=== PATIENT | female | born 1950 | race Caucasian/White ===

== ENCOUNTER → 2017-08-20 | Outpatient (CLI) | payer BC ==
--- NOTE | 2017-08-20 17:13 | RAD ---
EXAM: Chest, 2 views. HISTORY: Cough. COMPARISON: None. FINDINGS: Frontal and lateral views of the chest are obtained. There is no infiltrate, effusion or pneumothorax. The heart is normal in size. There is mild hyperinflation likely due to inspiratory effort. IMPRESSION: No acute pulmonary finding. Electronically signed by: Sasha Ramirez MD (08/20/2017 5:10 PM) [facility]
== END | disposition home or self-care (01) ==
LOC: PMG 14:38
PROVIDERS: ATTEND Physician Assistant Medical
DX: R05 Cough (principal); Z85.3 Personal history of malignant neoplasm of breast
CPT/HCPCS: 71046

== ENCOUNTER → 2017-08-24 | Outpatient (CLI) | payer BC ==
--- NOTE | 2017-08-24 09:30 | RAD ---
EXAM: MAMMO DEE DEE DIAG BILAT, BREAST LEFT. HISTORY: Left axillary pain radiating to the nipple. Discussion with the patient also gives history of stocking heavy items. COMPARISON: 02/25/2016, 10/26/2014, 09/15/2013. FINDINGS: 2-D and 3-D tomosynthesis mammograms were obtained of both breasts in the CC and MLO projections. Computer-aided detection (CAD) was utilized. The breast parenchyma demonstrate scattered fibroglandular densities (tissue density B). No dominant suspicious mass, suspicious microcalcifications, or architectural distortion is identified. A few, benign-appearing calcifications are present in both breasts including secretory calcifications in the left breast. Given history of left axillary pain, limited left breast ultrasound was performed. Ultrasound imaging of the left axilla was performed by eeg technologist. In the area of the patient pain, several small, benign-appearing lymph nodes are seen. One lymph node measures 2.3 x 1.3 x 0.9 cm. Smaller lymph node measuring 1.9 x 0.7 x 1.1 cm. Third lymph node measures 2.1 x 0.9 x 0.8 cm. A fourth lymph node measures 1.1 x 0.6 x 0.9 cm. These lymph nodes retain their fatty carlos and are without evidence of cortical thickening. IMPRESSION: 1. No mammographic evidence of malignancy. 2. Ultrasound imaging of the left axilla in area of pain demonstrates several small lymph nodes which are without worrisome features. If there is history of infection, these might be reactive which could explain tenderness. If pain is thought to be musculoskeletal given history of lifting heavy objects, then the lymph nodes may by happenstance be in area of strained muscle. Correlate clinically. 3. Recommend annual screening mammography. BI-RADS CATEGORY: 2 BENIGN FINDING RECOMMENDED FOLLOW-UP: 12M 12 MONTH FOLLOW-UP PQRS compliance statement: Patient information was entered into a reminder system with a target due date for the next mammogram. Mammography is a sensitive method for finding small breast cancers, but it does not detect them all and is not a substitute for careful clinical examination. A negative mammogram does not negate a clinically suspicious finding and should not result in delay in biopsying a clinically suspicious abnormality. "Our facility is accredited by the [employer] Mammography Program."
== END | disposition home or self-care (01) ==
LOC: MAMMO 08:00
PROVIDERS: ATTEND Physician Assistant Medical
DX: N64.4 Mastodynia (principal)
CPT/HCPCS: 76641; 77066; G0279; 77062